=== PATIENT | female | born 1930 | race Hispanic/Latino ===

== ENCOUNTER 2017-09-02 17:35 | Inpatient (IN) | payer MEDICARE, BC ==
[2017-09-02] MEDS ORDERED: Sodium Chloride 0.9% 1,000 ML IV SCH (18:15)
--- NOTE | 2017-09-02 18:24 | ED PDOC ---
Arrival/HPI - General Time Seen by Provider: 09/02/17 17:47 Historian: Family (daughter) - History of Present Illness Narrative History of Present Illness (Text): 09/02/17 18:21 86 year old female, whose past medical history includes diabetes and hypertension, who presents to the emergency department for AMS x 1 week. Patient 's daughter notes patient has been more confused over the past week. Patient's daughter notes patient has been experiencing increased urinary frequency and urgency. Patient's daughter states patient's fingerstick was 251, which is high for her, and a blood pressure of 102/64, which is low for her. Patient's daughter denies any fever, chills, shortness of breath, vomiting, diarrhea, or any other complaints. Full HPI and ROS limited due to patient's AMS. PMD: Dr. Messina Time/Duration: 1 week Symptom Onset: Gradual Symptom Course: Unchanged Activities at Onset: Light Context: Home Past Medical History - Provider Review Nursing Documentation Reviewed: Yes Family/Social History - Physician Review Nursing Documentation Reviewed: Yes Family/Social History: Unknown Family HX Allergies/Home Meds Allergies/Adverse Reactions: Allergies No Known Allergies Allergy (Unverified 09/02/17 18:06) Home Medications: Home Meds Medication Instructions Recorded Confirmed Lisinopril [Zestril] 1 tab PO DAILY 09/02/17 09/02/17 metFORMIN [glucOPHAGE] 1 tab PO DAILY 09/02/17 09/02/17 Review of Systems - Review of Systems Systems not reviewed;Unavailable: Altered Mental Status Physical Exam Vital Signs Reviewed: Yes Vital Signs Temp Pulse Resp BP Pulse Ox 09/02/17 17:54 98.3 F 82 18 118/66 97 Temperature: Afebrile Blood Pressure: Normal Pulse: Regular Respiratory Rate: Normal Appearance: Positive for: Well-Appearing, Non-Toxic, Comfortable Pain Distress: None Mental Status: Positive for: Alert and Oriented X 3 - Systems Exam Head: Present: Atraumatic, Normocephalic Pupils: Present: PERRL Extroacular Muscles: Present: EOMI Conjunctiva: Present: Normal Mouth: Present: Moist Mucous Membranes Neck: Present: Normal Range of Motion Respiratory/Chest: Present: Clear to Auscultation, Good Air Exchange. No: Respiratory Distress, Accessory Muscle Use Cardiovascular: Present: Regular Rate and Rhythm, Normal S1, S2. No: Murmurs Abdomen: No: Tenderness, Distention, Peritoneal Signs Back: Present: Normal Inspection Upper Extremity: Present: Normal Inspection. No: Cyanosis, Edema Lower Extremity: Present: Normal Inspection. No: Edema Neurological: Present: GCS=15, CN II-XII Intact, Speech Normal Skin: Present: Warm, Dry. No: Rashes, Normal Color (pale) Psychiatric: Present: Alert. No: Oriented x 3 (Oriented x2), Normal Concentration (confused) Medical Decision Making ED Course and Treatment: 09/02/17 18:28 Impression: Differential Diagnosis included but are not limited to: AMS vs. Rule out Sepsis vs. Rule out electrolyte inbalance Plan: -- VBG -- EKG -- Cardiac Enzymes -- Labs -- Chest X-ray -- Sodium Chloride -- Urinalysis -- Blood CUlture -- Urine Culture -- Reassess and disposition Progress Notes: 09/02/17 18:29 EKG reviewed, shows sinus arrythmia. First degree AV block. No ST elevations. 09/02/17 19:15 Case signed out to Dr. Dye to f/u labs, reevaluate and disposition. - Lab Interpretations Lab Results: 09/02/17 19:00 Lab Results 09/02/17 19:00: WBC 7.0, RBC 3.89, Hgb 11.0 L, Hct 32.3 L, MCV 83.0, MCH 28.3, MCHC 34.1, RDW 15.7 H, Plt Count 267, MPV 9.5, Gran % 71.5 H, Lymph % (Auto) 17.2 L, [place] % (Auto) 8.6 H, Eos % (Auto) 2.0, Baso % (Auto) 0.7, Gran # 4.99, Lymph # (Auto) 1.2, [place] # (Auto) 0.6, Eos # (Auto) 0.1, Baso # (Auto) 0.05 - RAD Interpretation Radiology Orders: 09/02/17 18:06 CHEST PORTABLE [RAD] Stat - Medication Orders Current Medication Orders: Sodium Chloride (Sodium Chloride 0.9%) 1,000 mls @ 150 mls/hr IV .Q6H40M RUDI Cefepime HCl (Maxipime 1gm) 1 gm in 100 mls @ 100 mls/hr IVPB STAT STA PRN Reason: Protocol Stop: 09/02/17 20:00 - Scribe Statement The provider has reviewed the documentation as recorded by the Scribe Karen Grimes All medical record entries made by the Scribe were at my direction and personally dictated by me. I have reviewed the chart and agree that the record accurately reflects my personal performance of the history, physical exam, medical decision making, and the department course for this patient. I have also personally directed, reviewed, and agree with the discharge instructions and disposition. Disposition/Present on Arrival - Present on Arrival Any Indicators Present on Arrival: No - Disposition Have Diagnosis and Disposition been Completed?: No Diagnosis: Altered mental status Disposition Time: 19:17 Condition: FAIR
--- NOTE | 2017-09-02 18:46 | RAD ---
Date of service: 09/02/2017 HISTORY: Sepsis Patient COMPARISON: No prior. FINDINGS: LUNGS: No active pulmonary disease. PLEURA: No significant pleural effusion identified, no pneumothorax apparent. CARDIOVASCULAR: No radiographic findings to suggest acute or significant cardiovascular disease. OSSEOUS STRUCTURES: Dislocation left shoulder age/acuity unknown. Severe degenerative changes right shoulder. VISUALIZED UPPER ABDOMEN: Normal. OTHER FINDINGS: None. IMPRESSION: No active disease.
[2017-09-02] MEDS ORDERED: Cefepime 1gm in NS 100ml 1 GM/100 ML BAG IVPB STA (19:01)
[2017-09-02 19:10] LABS: BASO # 0.05 K/mm3 (0.0-2.0); BASO % 0.7 % (0.0-3.0); EOS # 0.1 (0.0-0.7); GRAN # 4.99 (1.4-6.5); GRAN % 71.5 % (50.0-68.0); LYMPH # 1.2 (1.2-3.4); LYMPH % 17.2 % (22.0-35.0); MEAN CORPUSCULAR HEMOGLOBIN 28.3 pg (25.0-35.0); MEAN CORPUSCULAR HGB CONC 34.1 g/dl (31.0-37.0); MEAN PLATELET VOLUME 9.5 fl (7.0-11.0); MONO # 0.6 (0.1-0.6); MONO % 8.6 % (1.0-6.0); RBC 3.89 10^6/uL (3.5-6.1); RED CELL DISTRIBUTION WIDTH 15.7 % (11.5-14.5)
[2017-09-02 19:14] LABS: VENOUS BLOOD GAS BASE EXCESS 5.6 mmol/L (0.0-2.0); VENOUS BLOOD GAS PO2 83 mm/Hg (30-55); VENOUS BLOOD PH 7.44 (7.32-7.43)
--- NOTE | 2017-09-02 19:20 | ED PDOC ---
Physical Exam Vital Signs Reviewed: Yes Vital Signs Temp Pulse Pulse Resp BP Pulse Ox 09/03/17 02:49 98.2 F 71 71 18 131/59 L 09/03/17 00:31 98.3 F 67 18 136/72 97 09/02/17 20:05 62 18 129/60 98 09/02/17 17:54 98.3 F 82 18 118/66 97 Temperature: Afebrile Blood Pressure: Normal Pulse: Regular Respiratory Rate: Normal Appearance: Positive for: Well-Appearing, Non-Toxic, Comfortable Pain Distress: None Mental Status: Positive for: Alert and Oriented X 3 - Systems Exam Head: Present: Atraumatic, Normocephalic Pupils: Present: PERRL Extroacular Muscles: Present: EOMI Conjunctiva: Present: Normal Mouth: Present: Moist Mucous Membranes Neck: Present: Normal Range of Motion Respiratory/Chest: Present: Clear to Auscultation, Good Air Exchange. No: Respiratory Distress, Accessory Muscle Use Cardiovascular: Present: Regular Rate and Rhythm, Normal S1, S2. No: Murmurs Abdomen: No: Tenderness, Distention, Peritoneal Signs Back: Present: Normal Inspection Upper Extremity: Present: Normal Inspection. No: Cyanosis, Edema Lower Extremity: Present: Normal Inspection. No: Edema Neurological: Present: GCS=15, CN II-XII Intact, Speech Normal Skin: Present: Warm, Dry, Normal Color. No: Rashes Psychiatric: Present: Alert. No: Oriented x 3 (oRIENTED X2), Normal Concentration (Confused) Medical Decision Making ED Course and Treatment: 09/02/17 19:17 Patient signed out to me by Dr. Kearns, pending f/u labs, reevaluation, and disposition. Chest X-ray reviewed, shows: LUNGS: No active pulmonary disease. PLEURA: No significant pleural effusion identified, no pneumothorax apparent. CARDIOVASCULAR: No radiographic findings to suggest acute or significant cardiovascular disease. OSSEOUS STRUCTURES: Dislocation left shoulder age/acuity unknown. Severe degenerative changes right shoulder. VISUALIZED UPPER ABDOMEN: Normal. OTHER FINDINGS: None. IMPRESSION: No active disease. - Lab Interpretations Lab Results: 09/02/17 19:00 09/02/17 19:00 Lab Results 09/02/17 20:40: Urine Color Yellow, Urine Appearance Sl cloudy, Urine pH 7.0, Ur Specific [place] 1.020, Urine Protein 100 H, Urine Glucose (UA) >=1000, Urine Ketones Negative, Urine Blood Negative, Urine Nitrate Negative, Urine Bilirubin Negative, Urine Urobilinogen 0.2, Ur Leukocyte Esterase Negative, Urine RBC 1 - 3, Urine WBC 2 - 5, Ur Epithelial Cells 3 - 4, Urine Bacteria Small, Hyaline Casts 0 - 2 09/02/17 19:00: Sodium 134, Chloride 96 L, Potassium 4.2, Carbon Dioxide 26, Anion Gap 16, BUN 21, Creatinine 0.7, Est GFR ( Amer) > 60, Est GFR (Non- Af Amer) > 60, Random Glucose 222 H, Calcium 8.7, Phosphorus 3.5, Magnesium 1.6 L, Total Bilirubin 0.9, AST 32, ALT 30, Alkaline Phosphatase 46, Lactate Dehydrogenase 964 H, Total Creatine Kinase 209, Troponin I 0.02, Total Protein 6.9, Albumin 3.9, Globulin 3.0, Albumin/Globulin Ratio 1.3 09/02/17 19:00: pO2 83 H, VBG pH 7.44 H, VBG pCO2 45.0, VBG HCO3 30.6 H, VBG Total CO2 32.0 H, VBG O2 Sat (Calc) 93.0 H, VBG Base Excess 5.6 H, VBG Potassium 4.3, Sodium 134.0, Chloride 99.0, Glucose 235 H, Lactate 2.8 H, FiO2 21.0, Venous Blood Potassium 4.3 09/02/17 19:00: PT 11.4, INR 1.00, APTT 36.4 09/02/17 19:00: WBC 7.0, RBC 3.89, Hgb 11.0 L, Hct 32.3 L, MCV 83.0, MCH 28.3, MCHC 34.1, RDW 15.7 H, Plt Count 267, MPV 9.5, Gran % 71.5 H, Lymph % (Auto) 17.2 L, [place] % (Auto) 8.6 H, Eos % (Auto) 2.0, Baso % (Auto) 0.7, Gran # 4.99, Lymph # (Auto) 1.2, M[place] # (Auto) 0.6, Eos # (Auto) 0.1, Baso # (Auto) 0.05 - RAD Interpretation Radiology Orders: 09/02/17 18:06 CHEST PORTABLE [RAD] Stat - Medication Orders Current Medication Orders: Sodium Chloride (Sodium Chloride 0.9%) 1,000 mls @ 150 mls/hr IV .Q6H40M RUDI Last Admin: 09/02/17 20:13 Dose: 150 mls/hr eMAR Start Stop Document 09/02/17 20:13 SS (Rec: 09/02/17 20:13 SS [email or web address] Intravenous Solution Start Date 09/02/17 Start Time 08:01 Discontinued Medications Cefepime HCl (Maxipime 1gm) 1 gm in 100 mls @ 100 mls/hr IVPB STAT STA PRN Reason: Protocol Stop: 09/02/17 20:00 Last Admin: 09/02/17 20:53 Dose: 100 mls/hr eMAR Start Stop Document 09/02/17 20:53 SS (Rec: 09/02/17 20:54 SS [email or web address] Intravenous Solution Start Date 09/02/17 Start Time 20:43 End Date 09/02/17 End time 21:43 Total Infusion Time 60 - Scribe Statement The provider has reviewed the documentation as recorded by the Williamibdarlene Grimes All medical record entries made by the Williamibdarlene were at my direction and personally dictated by me. I have reviewed the chart and agree that the record accurately reflects my personal performance of the history, physical exam, medical decision making, and the department course for this patient. I have also personally directed, reviewed, and agree with the discharge instructions and disposition. Disposition/Present on Arrival - Present on Arrival Any Indicators Present on Arrival: No History of DVT/PE: No History of Uncontrolled Diabetes: No Urinary Catheter: No History of Decub. Ulcer: No History Surgical Site Infection Following: None - Disposition Have Diagnosis and Disposition been Completed?: Yes Diagnosis: Altered mental status Disposition: HOSPITALIZED Disposition Time: 22:00 Patient Problems: Current Active Problems Problem Status Onset Altered mental status Acute Condition: FAIR
[2017-09-02 19:21] LABS: ALB/GLOB RATIO 1.3 (1.1-1.8); ALBUMIN 3.9 g/dL (3.0-4.8); ALT/SGPT 30 U/L (7-56); AST/SGOT 32 U/L (14-36); BLOOD UREA NITROGEN 21 mg/dL (7-21); CALCIUM 8.7 mg/dL (8.4-10.5); GFR AFRICAN-AMERICAN > 60; GFR NON-AFRICAN AMERICAN > 60
[2017-09-02 19:33] LABS: TROPONIN I 0.02 ng/mL
[2017-09-02 20:17] LABS: PARTIAL THROMBOPLASTIN TIME 36.4 Seconds (25.1-36.5); PROTHROMBIN TIME 11.4 SECONDS (9.4-12.5)
[2017-09-02 21:21] LABS: URINE BILIRUBIN NEGATIVE (NEGATIVE); URINE BLOOD NEGATIVE (NEGATIVE); URINE GLUCOSE (UA) >=1000 mg/dL (NEGATIVE); URINE LEUKOCYTE ESTERASE NEGATIVE Leu/uL (NEGATIVE); URINE PROTEIN 100 mg/dL (<30 mg/dL); URINE UROBILINOGEN 0.2 E.U./dL (<1 E.U./dL)
[2017-09-02 21:33] LABS: URINE APPEARANCE SL CLOUDY (CLEAR); URINE COLOR YELLOW (YELLOW)
[2017-09-02 21:52] LABS: URINE BACTERIA SMALL (NEG); URINE HYALINE CAST 0 - 2 /hpf
[2017-09-03 00:26] LABS: VENOUS BLOOD GAS BASE EXCESS 6.2 mmol/L (0.0-2.0); VENOUS BLOOD GAS PO2 31 mm/Hg (30-55); VENOUS BLOOD PH 7.39 (7.32-7.43)
[2017-09-03 05:01] VITALS: BMI 22.4
[2017-09-03 08:22] LABS: BLOOD UREA NITROGEN 19 mg/dL (7-21); CALCIUM 9.2 mg/dL (8.4-10.5); GFR AFRICAN-AMERICAN > 60; GFR NON-AFRICAN AMERICAN > 60
[2017-09-03] MEDS: Insulin Reg-LOW-Coverage SC SCH ×4 (08:28→21:51)
[2017-09-03] MEDS ORDERED: Insulin Regular 1 UNITS/0.01 ML ML SC ONE (08:30)
[2017-09-03 08:40] LABS: FREE T4 < 0.07 ng/dL (0.78-2.19)
[2017-09-03] MEDS ORDERED: Levothyroxine 100 MCG TAB PO STA (09:26)
[2017-09-03] MEDS: Magnesium Oxide 400 mg Tab UD PO SCH (09:39)
--- NOTE | 2017-09-03 09:46 | CP.PCM.HP ---
History of Present Illness - History of Present Illness History of Present Illness: 86 year old female with history of hypertension, diabetes, hyperlipidemia and hypothyroidism was brought to the Emergency Room by her daughter for increasing confusion for 1 week. The patient also has urinary frequency. Patient has history of non-compliance with her medications. According to the daughter, the patient was able to walk with a cane a few weeks ago, but over the last week, she is very unsteady and unable to walk on her own. Present on Admission - Present on Admission Any Indicators Present on Admission: Yes History of DVT/PE: No History of Uncontrolled Diabetes: Yes Urinary Catheter: No Decubitus Ulcer Present: No Review of Systems - Review of Systems Systems not reviewed;Unavailable: Altered Mental Status Past Patient History - Infectious Disease Hx of Infectious Diseases: None - Past Social History Smoking Status: Never Smoked - CARDIAC Hx Cardiac Disorders: Yes Hx Hypertension: Yes - PULMONARY Hx Respiratory Disorders: No - HEENT Hx HEENT Problems: Yes Hx Deafness: Yes ([place]) - RENAL Hx Chronic Kidney Disease: No - ENDOCRINE/METABOLIC Hx Diabetes Mellitus Type 2: Yes Hx Hypothyroidism: Yes Other/Comment: thyroid problem - HEMATOLOGICAL/ONCOLOGICAL Hx Blood Disorders: No - INTEGUMENTARY Hx Dermatological Problems: No - MUSCULOSKELETAL/RHEUMATOLOGICAL Hx Musculoskeletal Disorders: Yes Hx Arthritis: Yes Hx Falls: No - GASTROINTESTINAL Hx Gastrointestinal Disorders: No - GENITOURINARY/GYNECOLOGICAL Hx Urinary Tract Infection: Yes - PSYCHIATRIC Hx Psychophysiologic Disorder: No Hx Substance Use: No - SURGICAL HISTORY Hx Surgeries: (unknown) Other/Comment: pt poor historian, memory issues Meds Allergies/Adverse Reactions: Allergies Allergy/AdvReac Type Severity Reaction Status Date / Time No Known Allergies Allergy Unverified 09/02/17 18:06 Physical Exam - Constitutional Appears: No Acute Distress - Head Exam Head Exam: ATRAUMATIC, NORMOCEPHALIC - Respiratory Exam Respiratory Exam: Clear to Auscultation Bilateral, NORMAL BREATHING PATTERN - Cardiovascular Exam Cardiovascular Exam: REGULAR RHYTHM, +S1, +S2 - GI/Abdominal Exam GI & Abdominal Exam: Normal Bowel Sounds, Soft. absent: Tenderness - Neurological Exam Neurological exam: Abnormal Gait, Alert, Altered Results - Vital Signs Recent Vital Signs: Last Vital Signs Temp 98 F 09/03/17 06:00 Pulse 88 09/03/17 06:00 Resp 18 09/03/17 06:00 BP 150/90 09/03/17 06:00 Pulse Ox 98 09/03/17 06:00 - Labs Result Diagrams: 09/02/17 19:00 09/03/17 07:50 Labs: Laboratory Results - last 24 hr 09/02/17 09/03/17 09/03/17 23:50 06:49 07:50 pO2 31 VBG pH 7.39 VBG pCO2 54.0 VBG HCO3 32.7 H VBG Total CO2 34.4 H VBG O2 Sat (Calc) 58.0 VBG Base Excess 6.2 H VBG Potassium 3.9 Sodium 136.0 139 Chloride 101.0 98 Glucose 189 H Lactate 1.7 FiO2 21.0 Potassium 4.0 Carbon Dioxide 31 Anion Gap 14 BUN 19 Creatinine 0.7 Est GFR ( Amer) > 60 Est GFR (Non-Af Amer) > 60 POC Glucose (mg/dL) 216 H Random Glucose 240 H Calcium 9.2 Free T4 TSH 3rd Generation Venous Blood Potassium 3.9 09/03/17 07:50 pO2 VBG pH VBG pCO2 VBG HCO3 VBG Total CO2 VBG O2 Sat (Calc) VBG Base Excess VBG Potassium Sodium Chloride Glucose Lactate FiO2 Potassium Carbon Dioxide Anion Gap BUN Creatinine Est GFR ( Amer) Est GFR (Non-Af Amer) POC Glucose (mg/dL) Random Glucose Calcium Free T4 < 0.07 L TSH 3rd Generation 56.10 H Venous Blood Potassium Assessment & Plan - Assessment and Plan (Free Text) Assessment: 86 year old female with history of hypertension, diabetes mellitus II , and hypothyroidism admitted with urinary tract infection and altered mental state, as well as inability to walk. Plan: Altered Mental State with probable underlying dementia - Patient has become increasingly confused over the last week as per patient's daughter. Will check B12, Folate levels. Will consult neurology with Dr. Candelario UTI - Patient given dose of IV Cefepime in the ER. Will consult ID. Awaiting results of urine culture Dehydration - continue IV fluids Hypothyroidism - Patient was on Synthroid at home, but refused to take it. - restart Synthroid 100 mcg daily Diabetes mellitus II - Accuchecks with sliding scale coverage - Metformin 500 mg BID - diabetic diet Inability to walk - Patient was walking with cane a few weeks ago as per daughter. start PT once cleared by neurology and ortho Dislocated shoulder/arthritis - dislocation of shoulder seen on X-ray, unable to determine if acute vs. old - Patient does not complain of pain; will consult ortho Non-compliance - Patient is generally noncompliant with her medications. When she is feeling well, she refuses to take her medications
[2017-09-03 09:55] LABS: HDL CHOLESTEROL 108 mg/dL (29-60)
[2017-09-03 10:06] LABS: LDL CHOLESTEROL 198 mg/dL (0-129)
[2017-09-03 12:48] LABS: FOLATE 13.5 ng/mL
[2017-09-03] MEDS: Cefepime 1gm in NS 100ml 1 GM/100 ML BAG IVPB SCH ×2 (13:49→21:08)
--- NOTE | 2017-09-03 14:02 | CT ---
Date of service: 09/03/2017 PROCEDURE: CT Chest without contrast HISTORY: possible pneumonia COMPARISON: None. TECHNIQUE: Contiguous axial images were obtained through the chest without intravenous contrast enhancement. Sagittal and coronal reconstructions were performed. Radiation dose (DLP): 368 mGy-cm. This CT exam was performed using one or more of the following dose reduction techniques: Automated exposure control, adjustment of the mA and/or kV according to patient size, and/or use of iterative reconstruction technique. FINDINGS: LUNGS: Clear lungs. Visualized airway clear. MEDIASTINUM: Unremarkable thoracic aorta. No aneurysm. Mild cardiomegaly. Heavily calcified coronary arteries. Calcified mitral valve Main pulmonary artery unremarkable. No vascular congestion. No lymphadenopathy. PLEURA: Small pleural effusions BONES: Anterior inferior dislocation of the left humeral head UPPER ABDOMEN: Grossly unremarkable. OTHER FINDINGS: None. IMPRESSION: No evidence of pneumonia. Dislocation of the left shoulder, age uncertain
--- NOTE | 2017-09-03 15:18 | CT ---
Date of service: 09/03/2017 PROCEDURE: CT HEAD WITHOUT CONTRAST. HISTORY: ams COMPARISON: None available. TECHNIQUE: Axial computed tomography images were obtained through the head/brain without intravenous contrast. Radiation dose: Total exam DLP = 844 mGy-cm. This CT exam was performed using one or more of the following dose reduction techniques: Automated exposure control, adjustment of the mA and/or kV according to patient size, and/or use of iterative reconstruction technique. FINDINGS: HEMORRHAGE: No intracranial hemorrhage. BRAIN: No mass effect or edema. No atrophy or chronic microvascular ischemic changes. VENTRICLES: Unremarkable. No hydrocephalus. CALVARIUM: Unremarkable. PARANASAL SINUSES: Unremarkable as visualized. No significant inflammatory changes. MASTOID AIR CELLS: Unremarkable as visualized. No inflammatory changes. OTHER FINDINGS: None. IMPRESSION: No acute findings
--- NOTE | 2017-09-03 16:41 | CARD ---
APPROVED REPORT Date of service: 09/02/2017 EKG Measurement Heart [id number] <Conclusion> Sinus rhythm with sinus arrhythmia with 1st degree AV block Left axis deviation Nonspecific intraventricular block Possible Anterolateral infarct, age undetermined Abnormal ECG
[2017-09-03 18:14] LABS: URINE BILIRUBIN NEGATIVE (NEGATIVE); URINE BLOOD NEGATIVE (NEGATIVE); URINE GLUCOSE (UA) 100 mg/dL (NEGATIVE); URINE LEUKOCYTE ESTERASE SMALL Leu/uL (NEGATIVE); URINE PROTEIN 30 mg/dL (<30 mg/dL); URINE UROBILINOGEN 0.2 E.U./dL (<1 E.U./dL)
[2017-09-03 18:15] LABS: URINE APPEARANCE CLEAR (CLEAR); URINE COLOR COLORLESS (YELLOW)
[2017-09-03 18:21] LABS: URINE EPITHELIAL CELLS 0 - 2 /hpf (0-5); URINE RBC NEGATIVE /hpf (0-2); URINE WBC 0 - 2 /hpf (0-6)
--- NOTE | 2017-09-03 19:04 | HP ---
HISTORY OF PRESENT ILLNESS: The patient was admitted via the emergency room last night. This is an 86-year-old white female. She is known to me at least for a short period of time. She is an elderly patient with dementia. She has history of coronary artery disease, cerebrovascular disease, history of stroke, diabetes mellitus, hypertension. The patient has history of frequency of micturition and incontinence. The patient was brought in to the emergency room by the family. The patient was having a state of altered mental function. The patient was also constantly going to the bathroom to urinate. The patient's blood sugar was elevated to 120 mg. PHYSICAL EXAMINATION: GENERAL: She is awake and able to answer questions and respond, but she is constantly saying she wants to go to the bathroom. VITAL SIGNS: The pulse is 71, blood pressure is 130/59, the patient's respirations are 16, O2 sat is 98% on room air. HEENT: Her head appears to be normocephalic. NECK: The thyroid is not clinically enlarged. She has history of hypothyroidism, but she does not take the medications for it. LUNGS: Trachea central. Breath sounds are vesicular. No adventitious sounds. HEART: Normal sinus rhythm. S1 and S2 present. ABDOMEN: Soft. Liver and spleen not palpable. No tenderness. No masses. There is some pressure in the hypogastric area on palpation. RECTAL: There is no acute medical problem at this time. SPECIALIST PHYSICIANS: She is confused, but passive. She moves all 4 limbs. On standing up, the patient's gait is very unstable and she has a trembling physical presence. The whole body tremors when she stands up. LABORATORY DATA: The patient's blood work done in the hospital emergency room: The blood sugar was 222 mg%. Calcium was 8.7. LDH was 964. Sodium was 134, potassium 4.2. The patient's CBC shows hemoglobin 11. Differential shows that the granulocytes are slightly elevated. Total white count is 7000. The patient's urinalysis has minimal white cells in the urine. The patient had a lactate finding that is elevated, which is consistent with an infection. The patient does not have any leukocyte esterase in the urine. DIAGNOSES: Possible urinary tract infection and frequency of micturition with overactive bladder. The patient has altered mental state. PLAN: To evaluate the patient by Neurology and Infectious Disease. We will give the patient her medications. The list of medicines she will be on metformin 500 mg b.i.d., insulin low coverage. The patient is on magnesium oxide 400 mg daily, lisinopril 20 mg daily, and sodium chloride 75 mL an hour. The patient's diet is heart-healthy diet, diabetic. Her prognosis is guarded, but her overall clinical condition at this time is unstable because the patient has acute symptoms associated with the altered mental state. Andree Messina MD
--- NOTE | 2017-09-04 00:23 | CON ---
DATE: 09/03/2017 LOCATION: The patient is seen in room 577, bed 1. The patient is in bed, in no acute distress while seen. CHIEF COMPLAINT: Weakness. HISTORY OF PRESENT ILLNESS: This is an 86-year-old female who was seen in the emergency room. The patient was brought from her home with past medical history of diabetes, hypertension, and chief complaint of acute mental status change x1 week. The patient's daughter said that the patient is more confused than in the past week than usual, associated with increased frequency and increased urgency and the patient's daughter did a fingerstick and realized the patient's blood sugar has been running high and her blood pressure has been running low. REVIEW OF SYSTEMS: Denies any fevers, any chills, any nausea. There is mild shortness of breath. No cough. No diarrhea or constipation. A 12-point review systems is reviewed and noted with the exception negative and with the exception of pertinent in the HPI. PAST MEDICAL HISTORY: Significant for hypertension, diabetes mellitus, and hypothyroidism. The patient is hard of hearing. The patient has arthritis, cerebrovascular accident. PAST SURGICAL HISTORY: Noncontributory. ALLERGIES: THE PATIENT HAS NO KNOWN ALLERGIES. MEDICATIONS AT HOME: Include lisinopril and metformin. PHYSICAL EXAMINATION: GENERAL: The patient is in bed, in no acute distress, nontoxic, chronically ill. VITAL SIGNS: Temperature of 98, blood pressure is 130/50, respiratory rate of 18, heart rate of 89. HEENT: Unremarkable. NECK: Supple. LUNGS: Decreased breath sounds. HEART: Normal S1, S2. ABDOMEN: Soft, nontender. No rebound or guarding. LABORATORY EXAMINATION: Reveals a white count of 7, hemoglobin of 11, and platelets of 267 with 71% granulocytosis. Coagulation is noted. Chemistries reveal the patient has a BUN of 19, creatinine of 0.7. Random glucose is 240. Creatinine is 0.7. Urinalysis reveals unremarkable, 2 to 5 wbc's. Microbiology is pending. The patient had a chest x-ray which was reported to be negative and the patient also had a CAT scan of the chest which was negative. Repeat urinalysis is requested. Procalcitonin is requested. A CAT scan of the head has been ordered. ASSESSMENT AND PLAN: An 86-year-old female with diabetes, hypertension, hypothyroidism, [id number], arthritis, cerebrovascular accident with acute mental status change with elevated blood sugar and negative urinalysis, negative chest x-ray, negative CAT scan of the chest. We will empirically treat the patient with Maxipime. Pending blood culture, repeat urinalysis, repeat urine culture. We will follow closely with you. Leonidas Barrera MD
--- NOTE | 2017-09-04 00:40 | CON ---
DATE: 09/03/2017 HISTORY OF PRESENT ILLNESS: This is an 86-year-old female with past medical history of hypertension, diabetes, and came with altered mental status, increased urinary frequency. I was called to evaluate the patient for altered mental status. HOME MEDICATIONS: Lisinopril and Glucophage. PHYSICAL EXAMINATION: VITAL SIGNS: Blood pressure 118/66. HEENT: Normocephalic, atraumatic. NECK: Supple. NEUROLOGIC: Awake, oriented to self and place. Cranial nerve II through XII were tested. Pupils reactive. EOM intact. Continuous movement of the extremities noted. Deep tendon reflexes are 1+. Both plantars are downgoing. LABORATORY DATA: WBC 7, hemoglobin 11, hematocrit of 32.3, glucose 267. IMPRESSION AND PLAN: Workup in progress. Continue present management. We will follow up. Remy Candelario MD
--- NOTE | 2017-09-04 01:11 | CON ---
DATE: 09/03/2017 ORTHOPEDIC CONSULT HISTORY OF PRESENT ILLNESS: The patient is an 86-year-old female, admitted to the hospital with Dr. 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 She can actually do her activities of daily living by elevating it, and limited rotation but functional for her lifestyle. She has very much weakness of the lower extremities. So I am going to send her for therapy for strengthening exercises of lower extremities and ambulation with a walker, and she can put weight on the chronically dislocated left shoulder. Neurologically is intact. She has a high risk of falling, so that is why I want to get her stronger at therapy and improve her coordination and balance. FINAL DIAGNOSIS: Stable chronic dislocation of left shoulder that does not need any further interventions such as surgery, and can just do functional exercises and therapy to strengthen her weakened lower extremities. Jamal Robison DO
[2017-09-04] MEDS: Levothyroxine 100 MCG TAB PO SCH (05:57)
[2017-09-04] MEDS: Sodium Chloride 0.9% 1,000 ML IV SCH ×2 (06:37→21:31)
[2017-09-04 07:26] LABS: BASO # 0.07 K/mm3 (0.0-2.0); BASO % 0.7 % (0.0-3.0); EOS # 0.2 (0.0-0.7); EOS % 1.7 % (1.5-5.0); GRAN # 7.25 (1.4-6.5); GRAN % 71.1 % (50.0-68.0); HEMOGLOBIN 13.1 g/dL (12.0-16.0); LYMPH # 1.9 (1.2-3.4); LYMPH % 18.6 % (22.0-35.0); MEAN CORPUSCULAR HEMOGLOBIN 28.1 pg (25.0-35.0); MEAN CORPUSCULAR HGB CONC 33.9 g/dl (31.0-37.0); MEAN PLATELET VOLUME 9.8 fl (7.0-11.0); MONO # 0.8 (0.1-0.6); MONO % 7.9 % (1.0-6.0); RBC 4.66 10^6/uL (3.5-6.1); RED CELL DISTRIBUTION WIDTH 15.7 % (11.5-14.5); WHITE BLOOD COUNT 10.2 10^3/ul (4.5-11.0)
[2017-09-04 07:45] LABS: ALB/GLOB RATIO 1.3 (1.1-1.8); ALBUMIN 4.4 g/dL (3.0-4.8); ALT/SGPT 26 U/L (7-56); AST/SGOT 48 U/L (14-36); BLOOD UREA NITROGEN 18 mg/dL (7-21); CALCIUM 8.9 mg/dL (8.4-10.5); GFR AFRICAN-AMERICAN > 60; GFR NON-AFRICAN AMERICAN > 60
[2017-09-04] MEDS: Insulin Reg-LOW-Coverage SC SCH ×4 (08:07→21:29)
--- NOTE | 2017-09-04 08:14 | CP.PCM.PN ---
Subjective - Date & Time of Evaluation Date of Evaluation: 09/04/17 Time of Evaluation: 07:45 - Subjective Subjective: Patient is seen this morning. She is very confused. Objective - Vital Signs/Intake and Output Vital Signs (last 24 hours): Temp Pulse Resp BP Pulse Ox 98.3 F 86 18 135/88 97 09/04/17 06:00 09/04/17 06:00 09/04/17 06:00 09/04/17 06:00 09/04/17 06:00 Intake and Output: 09/04/17 09/04/17 06:59 18:59 Intake Total 1560 Output Total 300 Balance 1260 - Medications Medications: Current Medications Sodium Chloride (Sodium Chloride 0.9%) 1,000 mls @ 75 mls/hr IV .[id number] [facility] Last Admin: 09/04/17 06:37 Dose: 75 mls/hr Cefepime HCl (Maxipime 1gm) 1 gm in 100 mls @ 100 mls/hr IVPB Q12 [facility] PRN Reason: Protocol Last Admin: 09/03/17 21:08 Dose: 100 mls/hr Insulin Human Regular (Humulin R Low) 0 units SC ACHS [facility] PRN Reason: Protocol Last Admin: 09/03/17 21:51 Dose: Not Given Levothyroxine Sodium (Synthroid) 100 mcg PO 0600 [facility] Last Admin: 09/04/17 05:57 Dose: 100 mcg Lisinopril (Zestril) 20 mg PO DAILY [facility] Last Admin: 09/03/17 09:42 Dose: 20 mg Magnesium Oxide (Mag-Ox) 400 mg PO DAILY [facility] Last Admin: 09/03/17 09:39 Dose: 400 mg Metformin HCl (Glucophage) 500 mg PO BID [facility] Last Admin: 09/03/17 17:46 Dose: 500 mg - Labs Labs: 09/04/17 06:45 09/04/17 06:45 PT 11.4 SECONDS (9.4-12.5) 09/02/17 19:00 INR 1.00 (0.93-1.08) 09/02/17 19:00 APTT 36.4 Seconds (25.1-36.5) 09/02/17 19:00 - Constitutional Appears: No Acute Distress - Head Exam Head Exam: ATRAUMATIC, NORMOCEPHALIC - Respiratory Exam Respiratory Exam: Clear to Ausculation Bilateral, NORMAL BREATHING PATTERN - Cardiovascular Exam Cardiovascular Exam: REGULAR RHYTHM, +S1, +S2 - GI/Abdominal Exam GI & Abdominal Exam: Soft, Normal Bowel Sounds. absent: Tenderness - Neurological Exam Neurological Exam: Abnormal Gait, Alert, Altered, Awake Assessment and Plan - Assessment and Plan (Free Text) Assessment: 86 year old female with: 1) altered mental state superimposed on probable underlying dementia - Patient is very confused this morning and trying to get out of bed. she is oriented to person, but not to time or place. She is not able to answer questions appropriately. Neurology consult appreciated. Patient has had memory deficits, but was functional prior to admission. According to the daughter, she has become more confused over the last week. B12 and folate levels are normal. CT Head normal. Will check EEG. Neurology evaluation ongoing. Patient is severely hypothyroid. Thyroid replaced. rule out encephalopathy 2) UTI - antibiotics as per infectious disease; awaiting urine culture 3) Severe hypothyroidism - continue synthroid; patient was not compliant with synthroid at home 4) Diabetes mellitus II - continue accuchecks with sliding scale coverage and metformin - continue diabetic diet 5) Hypertension - continue Lisinopril 6) Hyperlipidemia - restart statin; patient was not compliant with Zocor at home 7) Arthritis/inability to walk - Patient has weakness of lower limbs. Ortho consult appreciated. continue physical therapy.
[2017-09-04] MEDS: Cefepime 1gm in NS 100ml 1 GM/100 ML BAG IVPB SCH ×2 (10:35→21:30)
[2017-09-04] MEDS: Magnesium Oxide 400 mg Tab UD PO SCH (10:36)
--- NOTE | 2017-09-04 13:22 | PN ---
DATE: 09/04/2017 SUBJECTIVE: The patient is in bed, in no acute distress, nontoxic. PHYSICAL EXAMINATION: VITAL SIGNS: Temperature is 98, blood pressure is 130/80, respiratory rate of 18, heart rate of 86. HEENT: Examination of HEENT is unremarkable. NECK: Supple. LUNGS: Have decreased breath sounds. HEART: Normal S1 and S2. ABDOMEN: Soft, nontender. LABORATORY DATA: Laboratory examination reveals a white count of 10, hemoglobin of 13. BUN of 18, creatinine of 0.6, procalcitonin 0.05. Urinalysis is noted. Microbiology reveals the blood cultures are negative. Urine cultures are negative. ASSESSMENT AND PLAN: An 86-year-old female who was seen early this morning with diabetes, hypertension, hypothyroidism, hard of hearing, arthritis, cerebrovascular accident, admitted with a change of mental status and elevated blood sugar. Negative urinalysis. Negative chest x-ray. Negative CAT scan of the chest with negative blood cultures, negative urine cultures, negative CAT scan of the head, negative procalcitonin. We will discontinue the antibiotics in the next 24 hours as all workup is negative thus far with a negative white count also. Dr. Messina's note is reviewed from this morning. No evidence of infection at this point so far. Leonidas Barrera MD
[2017-09-04 20:47] LABS: THYROGLOBULIN <0.1 ng/mL (2.8-40.9)
[2017-09-05] MEDS: Sodium Chloride 0.9% 1,000 ML IV SCH (00:34)
[2017-09-05] MEDS: Levothyroxine 100 MCG TAB PO SCH (05:43)
[2017-09-05 06:58] LABS: BASO # 0.06 K/mm3 (0.0-2.0); EOS # 0.3 (0.0-0.7); GRAN # 3.82 (1.4-6.5); HEMOGLOBIN 11.4 g/dL (12.0-16.0); LYMPH # 1.4 (1.2-3.4); MEAN CELL VOLUME 84.3 fl (80.0-105.0); MEAN CORPUSCULAR HEMOGLOBIN 27.5 pg (25.0-35.0); MEAN CORPUSCULAR HGB CONC 32.7 g/dl (31.0-37.0); MEAN PLATELET VOLUME 9.3 fl (7.0-11.0); MONO # 0.6 (0.1-0.6); RBC 4.14 10^6/uL (3.5-6.1); WHITE BLOOD COUNT 6.2 10^3/ul (4.5-11.0)
[2017-09-05 07:17] LABS: ALB/GLOB RATIO 1.2 (1.1-1.8); ALBUMIN 3.5 g/dL (3.0-4.8); ALT/SGPT 34 U/L (7-56); AST/SGOT 35 U/L (14-36); BLOOD UREA NITROGEN 19 mg/dL (7-21); CALCIUM 8.2 mg/dL (8.4-10.5); GFR AFRICAN-AMERICAN > 60; GFR NON-AFRICAN AMERICAN > 60
[2017-09-05] MEDS: Insulin Reg-LOW-Coverage SC SCH ×3 (07:53→16:02)
[2017-09-05 08:00] VITALS: RESP 20; TEMP 98.4; O2SAT 95
[2017-09-05] MEDS: Cefepime 1gm in NS 100ml 1 GM/100 ML BAG IVPB SCH (09:27)
[2017-09-05] MEDS: Magnesium Oxide 400 mg Tab UD PO SCH (09:27)
[2017-09-05 09:34] VITALS: BP 124/70; PULSE 73
--- NOTE | 2017-09-05 10:47 | CP.PCM.PN ---
Subjective - Date & Time of Evaluation Date of Evaluation: 09/05/17 Time of Evaluation: 08:05 - Subjective Subjective: Patient is seen this morning. She is confused, but pleasant. Objective - Vital Signs/Intake and Output Vital Signs (last 24 hours): Temp Pulse Resp BP Pulse Ox 98.4 F 73 20 124/70 95 09/05/17 06:00 09/05/17 09:27 09/05/17 06:00 09/05/17 09:27 09/05/17 06:00 Intake and Output: 09/05/17 09/05/17 06:59 18:59 Intake Total 1285 Output Total 200 Balance 1085 - Medications Medications: Current Medications Atorvastatin Calcium (Lipitor) 20 mg PO DIN [facility] Last Admin: 09/04/17 17:08 Dose: 20 mg Sodium Chloride (Sodium Chloride 0.9%) 1,000 mls @ 75 mls/hr IV .[id number] [facility] Last Admin: 09/05/17 00:34 Dose: Not Given Insulin Human Regular (Humulin R Low) 0 units SC ACHS [facility] PRN Reason: Protocol Last Admin: 09/05/17 07:53 Dose: Not Given Levothyroxine Sodium (Synthroid) 100 mcg PO 0600 [facility] Last Admin: 09/05/17 05:43 Dose: 100 mcg Lisinopril (Zestril) 20 mg PO DAILY [facility] Last Admin: 09/05/17 09:27 Dose: 20 mg Lorazepam (Ativan) 0.5 mg IVP Q6H PRN; Protocol PRN Reason: Anxiety Magnesium Oxide (Mag-Ox) 400 mg PO DAILY [facility] Last Admin: 09/05/17 09:27 Dose: 400 mg Metformin HCl (Glucophage) 500 mg PO BID [facility] Last Admin: 09/05/17 09:27 Dose: 500 mg - Labs Labs: 09/05/17 06:15 09/05/17 06:15 PT 11.4 SECONDS (9.4-12.5) 09/02/17 19:00 INR 1.00 (0.93-1.08) 09/02/17 19:00 APTT 36.4 Seconds (25.1-36.5) 09/02/17 19:00 - Constitutional Appears: No Acute Distress - Head Exam Head Exam: ATRAUMATIC, NORMOCEPHALIC - Respiratory Exam Respiratory Exam: Clear to Ausculation Bilateral, NORMAL BREATHING PATTERN - Cardiovascular Exam Cardiovascular Exam: REGULAR RHYTHM, +S1, +S2 - GI/Abdominal Exam GI & Abdominal Exam: Soft, Normal Bowel Sounds. absent: Tenderness - Neurological Exam Neurological Exam: Abnormal Gait, Alert, Altered, Awake Assessment and Plan - Assessment and Plan (Free Text) Assessment: Encephalopathy with underlying dementia - EEG done yesterday; awaiting results - B12, folate, and CT Head within normal limits - Neurology on case Weakness lower extremities/ back pain/ knee pain - continue PT - check Xray LS spine and knees HTN - continue Zestril Diabetes - continue accuchecks with sliding scale coverage - continue Metformin Hyperlipidemia - continue Lipitor Severe hypothyroidism - continue replacement with Synthroid
--- NOTE | 2017-09-05 12:27 | RAD ---
Date of service: 09/05/2017 PROCEDURE: Radiographs of the Lumbar Spine. HISTORY: back pain COMPARISON: No prior. FINDINGS: BONES: Normal alignment. No listhesis. No fracture. DISC SPACES: There is multilevel disc degeneration with vacuum discs and large marginal osteophytes. OTHER FINDINGS: None. IMPRESSION: Severe multilevel disc degeneration
--- NOTE | 2017-09-05 12:29 | CP.PCM.PN ---
Subjective - Date & Time of Evaluation Date of Evaluation: 09/05/17 Time of Evaluation: 11:25 - Subjective Subjective: Afebrile, not in distress. Objective - Vital Signs/Intake and Output Vital Signs (last 24 hours): Temp Pulse Resp BP Pulse Ox 98.4 F 73 20 124/70 95 09/05/17 06:00 09/05/17 09:27 09/05/17 06:00 09/05/17 09:27 09/05/17 06:00 Intake and Output: 09/05/17 09/05/17 06:59 18:59 Intake Total 1285 Output Total 200 Balance 1085 - Medications Medications: Current Medications Atorvastatin Calcium (Lipitor) 20 mg PO DIN [facility] Last Admin: 09/04/17 17:08 Dose: 20 mg Sodium Chloride (Sodium Chloride 0.9%) 1,000 mls @ 75 mls/hr IV .[id number] [facility] Last Admin: 09/05/17 00:34 Dose: Not Given Insulin Human Regular (Humulin R Low) 0 units SC ACHS [facility] PRN Reason: Protocol Last Admin: 09/05/17 07:53 Dose: Not Given Levothyroxine Sodium (Synthroid) 100 mcg PO 0600 [facility] Last Admin: 09/05/17 05:43 Dose: 100 mcg Lisinopril (Zestril) 20 mg PO DAILY [facility] Last Admin: 09/05/17 09:27 Dose: 20 mg Lorazepam (Ativan) 0.5 mg IVP Q6H PRN; Protocol PRN Reason: Anxiety Magnesium Oxide (Mag-Ox) 400 mg PO DAILY [facility] Last Admin: 09/05/17 09:27 Dose: 400 mg Metformin HCl (Glucophage) 500 mg PO BID [facility] Last Admin: 09/05/17 09:27 Dose: 500 mg - Labs Labs: 09/05/17 06:15 09/05/17 06:15 PT 11.4 SECONDS (9.4-12.5) 09/02/17 19:00 INR 1.00 (0.93-1.08) 09/02/17 19:00 APTT 36.4 Seconds (25.1-36.5) 09/02/17 19:00 - Constitutional Appears: Chronically Ill - Head Exam Head Exam: NORMAL INSPECTION - Respiratory Exam Respiratory Exam: Decreased Breath Sounds - Cardiovascular Exam Cardiovascular Exam: +S1, +S2 - GI/Abdominal Exam GI & Abdominal Exam: Soft. absent: Tenderness Assessment and Plan - Assessment and Plan (Free Text) Plan: Assessment change in mental status probable metabolic encephalopathy (hyperglycemia) with no evidence of sepsis or infection HTN DM history of CVA arthritis hypothyroidism Plan Urinalysis, urine and blood cx are negative - will d/c Cefepime and observe off antibiotics
--- NOTE | 2017-09-05 12:32 | RAD ---
Date of service: 09/05/2017 PROCEDURE: Bilateral knees HISTORY: bilateral knee pain COMPARISON: TECHNIQUE: Two views of each knee FINDINGS: Mild degenerative changes are seen in the patellofemoral joints in the medial compartment of the right knee. No evidence of fracture. No evidence of joint effusion IMPRESSION: Mild degenerative changes are seen in the patellofemoral joints in the medial compartment of the right knee.
== END 2017-09-05 17:42 | disposition home health service (06) | DRG 72 ==
LOC: ED 17:35 → ERH 22:05 → 5RSO 09-03 01:22
PROVIDERS: ADMIT Internal Medicine; ATTEND Internal Medicine
DX: G93.41 Metabolic encephalopathy (principal); I10 Essential (primary) hypertension; E11.65 Type 2 diabetes mellitus with hyperglycemia; E03.9 Hypothyroidism, unspecified; E78.5 Hyperlipidemia, unspecified; F03.90 Unspecified dementia, unspecified severity, without behavioral disturbance, psychotic disturbance, mood disturbance, and anxiety; H91.90 Unspecified hearing loss, unspecified ear; I25.10 Atherosclerotic heart disease of native coronary artery without angina pectoris; Z86.73 Personal history of transient ischemic attack (TIA), and cerebral infarction without residual deficits; M19.90 Unspecified osteoarthritis, unspecified site; M24.412 Recurrent dislocation, left shoulder; Z87.440 Personal history of urinary (tract) infections; Z91.14 Patient's other noncompliance with medication regimen; R40.2412 Glasgow coma scale score 13-15, at arrival to emergency department